=== PATIENT | male | born 2000 | race Two or more races ===

== ENCOUNTER 2023-04-24 22:26 | Emergency (ER) | payer OTHER ==
[~2023-04-24] VITALS: Ht 180.3 cm; Wt 65.4 kg
[2023-04-24 22:34] VITALS: TEMP 98
[2023-04-24] MEDS: ondansetron 4mg rapidly disintigrating tab PO ONE (22:50)
[2023-04-25] MEDS: normal saline 1000ML IV soln IVB ONE (00:09)
[2023-04-25] MEDS: ondansetron/PF 4mg/2ml inj IV ONE (00:21)
[2023-04-25] MEDS ORDERED: ONDA4TAB12 PO (00:55)
[2023-04-25] MEDS: metoclopramide 5 mg/ml inj IV ONE (01:14)
[2023-04-25] MEDS: diphenhydrAMINE 50 mg/ml inj IV ONE (01:14)
[2023-04-25 01:58] VITALS: BP 108/66; PULSE 86; RESP 16; O2SAT 98
== END 2023-04-25 02:13 | disposition home or self-care (01) ==
LOC: ER 22:27
DX: R11.2 Nausea with vomiting, unspecified (principal); R19.7 Diarrhea, unspecified; R10.9 Unspecified abdominal pain; Z88.0 Allergy status to penicillin; Z79.899 Other long term (current) drug therapy
CPT/HCPCS: 96361; 96374; 96375; 99284; J1200; J2405; J2765; J7030